=== PATIENT | male | born 1975 | race Caucasian/White ===

== ENCOUNTER → 2023-08-09 06:20 | Day surgery (SDC) | payer OTHER, SELFPAY | LOC: GI 06:20 | PROVIDERS: ATTENDING PHYSICIAN Internal Medicine | DX: Z12.11 Encounter for screening for malignant neoplasm of colon (principal); D12.2 Benign neoplasm of ascending colon; D12.7 Benign neoplasm of rectosigmoid junction | CPT/HCPCS: 45385; 45380; 88305 ==